=== PATIENT | male | born 1980 | race Two or more races ===

== ENCOUNTER 2024-10-30 13:19 | Emergency (ER) | payer SELFPAY ==
[~2024-10-30] VITALS: Ht 182.9 cm; Wt 104.6 kg
[2024-10-30 14:06] LABS: BASOPHILS # (AUTO) 0.1 X10'3 (0-0.2); BASOPHILS % (AUTO) 0.7 % (0-1); EOSINOPHILS # (AUTO) 0.3 X10'3 (0-0.9); EOSINOPHILS % (AUTO) 2.7 % (0-6); HEMATOCRIT 50.4 % (42.0-52.0); HEMOGLOBIN 16.8 g/dl (14.0-17.9); LYMPHOCYTES # (AUTO) 2.9 X10'3 (1.1-4.8); LYMPHOCYTES % (AUTO) 31.5 % (21-51); MEAN CORPUSCULAR HEMOGLOBIN 29.6 PG (27.0-31.0); MEAN CORPUSCULAR HGB CONC 33.5 g/dL (33.0-36.5); MEAN CORPUSCULAR VOLUME 88.4 FL (78-98); MEAN PLATELET VOLUME 8.8 FL (7.4-10.4); MONOCYTES # (AUTO) 0.4 X10'3 (0-0.9); MONOCYTES % (AUTO) 4.7 % (2-12); NEUTROPHILS # (AUTO) 5.5 X10'3 (1.8-7.7); NEUTROPHILS % (AUTO) 60.4 % (42-75); PLATELET COUNT 231 X10'3 (140-440); RED CELL DISTRIBUTION WIDTH 13.9 % (11.5-14.5); WHITE BLOOD COUNT 9.2 X10'3 (4.5-11.0)
[2024-10-30 14:24] LABS: ALANINE AMINOTRANSFERASE 48 U/L (12-78); ALBUMIN 3.9 G/DL (3.4-5.0); ALBUMIN/GLOBULIN RATIO 0.9 (1.1-1.5); ALKALINE PHOSPHATASE 140 IU/L (46-116); ANION GAP 10 (8-16); ASPARTATE AMINO TRANSFERASE 29 U/L (10-37); BILIRUBIN,TOTAL 0.6 MG/DL (0.1-1.0); BLOOD UREA NITROGEN 9 MG/DL (7-18); BUN/CREATININE RATIO 8.7 (10.0-20.0); CALCIUM 8.5 MG/DL (8.5-10.1); CHLORIDE 105 MMOL/L (99-107); CREATININE 1.04 MG/DL (0.60-1.10); GLUCOSE 134 MG/DL (70-104); POTASSIUM 3.4 MMOL/L (3.5-5.1); SODIUM 143 MMOL/L (135-145); TOTAL CARBON DIOXIDE 28.5 MMOL/L (24-32); TOTAL PROTEIN 8.4 G/DL (6.4-8.2); eCRCL 99 ML/MIN; eGFR 78 ML/MIN
[2024-10-30 14:28] LABS: LIPASE 33 U/L (16-77)
[2024-10-30] MEDS: LIDOcaine 2% Viscous 15ml cup MM PRN (14:46)
[2024-10-30] MEDS: famotidine 20mg tablet PO ONE (14:46)
[2024-10-30] MEDS: mag hydrox/Alum hydrox/simeth 30ml oral suspension PO ONE (14:46)
[2024-10-30] MEDS: proCHLORperazine 10 MG/2 ml inj IV ONE (15:02)
[2024-10-30] MEDS: normal saline 1000ml 1,000 ML IV ONE (15:06)
[2024-10-30] MEDS: diphenhydrAMINE 50 mg/ml inj IV ONE (15:22)
[2024-10-30] MEDS ORDERED: ONDA-245 PO (15:30)
[2024-10-30] MEDS ORDERED: RIME75TA PO (15:30)
[2024-10-30 15:55] VITALS: BP 118/82; PULSE 79; RESP 16; TEMP 98.5; O2SAT 98
== END 2024-10-30 16:05 | disposition home or self-care (01) ==
LOC: ER 13:21
DX: G43.909 Migraine, unspecified, not intractable, without status migrainosus (principal); R11.2 Nausea with vomiting, unspecified; R10.13 Epigastric pain
CPT/HCPCS: 36415; 71045; 80053; 83690; 84484; 85025; 93005; 96361; 96374; 96375; 99285; J0780; J1200; J7030

== ENCOUNTER 2025-04-05 21:56 | Emergency (ER) | payer MEDICAID ==
[~2025-04-05] VITALS: Ht 185.4 cm; Wt 92.1 kg
[~2025-04-05 21:56] MED LIST: ONDA-245 PO; RIME75TA PO
[2025-04-05 22:02] VITALS: TEMP 98.6
[2025-04-05 22:21] LABS: CLARITY,URINE CLEAR (Clear); COLOR,URINE ORANGE (Yellow); UA COLLECTION TYPE CLN CATCH MIDSTREAM
[2025-04-05 22:26] LABS: BASOPHILS # (AUTO) 0.1 X10'3 (0-0.2); BASOPHILS % (AUTO) 0.8 % (0-1); EOSINOPHILS # (AUTO) 0.4 X10'3 (0-0.9); EOSINOPHILS % (AUTO) 3.1 % (0-6); HEMATOCRIT 48.1 % (42.0-52.0); HEMOGLOBIN 16.3 g/dl (14.0-17.9); MEAN CORPUSCULAR HEMOGLOBIN 29.2 PG (27.0-31.0); MEAN CORPUSCULAR HGB CONC 33.8 g/dL (33.0-36.5); MEAN CORPUSCULAR VOLUME 86.4 FL (78-98); MEAN PLATELET VOLUME 8.9 FL (7.4-10.4); MONOCYTES # (AUTO) 0.8 X10'3 (0-0.9); MONOCYTES % (AUTO) 7.2 % (2-12); NEUTROPHILS # (AUTO) 6.1 X10'3 (1.8-7.7); NEUTROPHILS % (AUTO) 53.9 % (42-75); PLATELET COUNT 195 X10'3 (140-440); RED BLOOD COUNT 5.57 X10'6 (4.70-6.10); RED CELL DISTRIBUTION WIDTH 13.9 % (11.5-14.5); WHITE BLOOD COUNT 11.4 X10'3 (4.5-11.0)
[2025-04-05 22:31] LABS: WBC,URINE 30-50 /HPF (0-4)
[2025-04-05 22:32] LABS: BACTERIA,URINE FEW /HPF (Neg); SQUAMOUS EPITHELIAL CELL,UR FEW /LPF (FEW)
[2025-04-05 22:37] LABS: ALANINE AMINOTRANSFERASE 53 U/L (12-78); ALBUMIN 3.7 G/DL (3.4-5.0); ALBUMIN/GLOBULIN RATIO 0.9 (1.1-1.5); ALKALINE PHOSPHATASE 139 IU/L (46-116); ANION GAP 8 (8-16); ASPARTATE AMINO TRANSFERASE 35 U/L (10-37); BILIRUBIN,TOTAL 0.6 MG/DL (0.1-1.0); BLOOD UREA NITROGEN 14 MG/DL (7-18); BUN/CREATININE RATIO 15.2 (10.0-20.0); CALCIUM 8.8 MG/DL (8.5-10.1); CHLORIDE 107 MMOL/L (99-107); CREATININE 0.92 MG/DL (0.60-1.10); GLUCOSE 113 MG/DL (70-104); LIPASE 35 U/L (16-77); SODIUM 142 MMOL/L (135-145); TOTAL CARBON DIOXIDE 27.2 MMOL/L (24-32); TOTAL PROTEIN 7.6 G/DL (6.4-8.2); eCRCL 115 ML/MIN; eGFR 89 ML/MIN
--- NOTE | 2025-04-06 01:52 | Physician Documentation ---
History of Present Illness ~ Chief Complaint: Blood in Urine Stated Complaint: INFECTION Time Seen by MD: 01:51 Mode of Arrival: Ambulatory HPI Patient presents to the emergency room with dysuria. Taking azo for symptoms. Feeling feverish. Mild reported abdominal pain along with some nausea as well. Medication Reconciliation Allergies: Coded Allergies: No Known Allergies (Unverified , 04/05/25) Scheduled PRN Ondansetron 8mg ODT (Ondansetron Odt), 1 TAB PO TID PRN for nausea/vomiting Rimegepant Sulfate (Nurtec Odt), 1 TAB PO QDAY PRN PRN for migraine Review of Systems ROS All review of systems negative except as per HPI Physical Exam Vital Signs: Temperature: 98.6, Source: Temporal, Heart Rate: 57, Respiratory Rate: 16, BP: 124/87, Pulse Oximetry: 97, Weight: 92.100 Physical Exam General: Patient is awake, alert, oriented x4 in no acute distress Head: Normocephalic and atraumatic. Eyes: Conjunctival normal. EOMI. PERRL. ENT: Mucous membranes moist. Neck: Supple, trachea is midline. Chest: Clear to auscultation bilaterally without rales, rhonchi, or wheezes. There is no accessory muscle use or retractions. Cardiac: RRR without murmurs, gallops, or rubs. Abd: Soft, nondistended, nontender, with normoactive bowel sounds. No guarding, rebound, or rigidity. Progress Results/Orders Results/Orders Orders - CIRILO WADE MD Cult Urine + [place] [address] (04/05/25 22:32) Completed Orders - CIRILO WADE MD Cbc/Diff (04/05/25 22:05) BMP (04/05/25 22:05) Lipase (04/05/25 22:05) CMP (04/05/25 22:05) Procalcitonin (04/05/25 22:05) Ua W/Microscopic, Cult If Ind (04/05/25 22:07) Ondansetron Disint. Tablet (Zofran Odt T (04/06/25 01:55) Ciprofloxacin Tablet (Cipro Tablet) (04/06/25 01:55) Vital Signs 04/05/25 04/06/25 04/06/25 22:02 00:45 01:16 Temp 98.6 Pulse 65 57 Resp 15 16 16 B/P (MAP) 146/65 124/87 (99) Pulse Ox 96 97 Laboratory Tests Test 04/05/25 22:07 04/05/25 22:15 Urine Specimen Description Cln catch midstream Urine Color [place] Urine Clarity Clear Urine pH Urine Specific [place] Urine Protein Urine Glucose (UA) Urine Ketones Urine Occult Blood Urine Nitrite Urine Bilirubin Urine Urobilinogen Urine Leukocyte Esterase Urine RBC 3-10 Urine WBC 30-50 H Urine Squamous Epithelial Cells Few Urine Bacteria Few Urine Culture Indicated Indicated Volume Urine Centrifuged 10 ml Urine Comment See note White Blood Count 11.4 H Red Blood Count 5.57 Hemoglobin 16.3 Hematocrit 48.1 Mean Corpuscular Volume 86.4 Mean Corpuscular Hemoglobin 29.2 Mean Corpuscular Hemoglobin Concent 33.8 Red Cell Distribution Width 13.9 Platelet Count 195 Mean Platelet Volume 8.9 Neutrophils (%) (Auto) 53.9 Lymphocytes (%) (Auto) 35.0 Monocytes (%) (Auto) 7.2 Eosinophils (%) (Auto) 3.1 Basophils (%) (Auto) 0.8 Neutrophils # (Auto) 6.1 Lymphocytes # (Auto) 4.0 Monocytes # (Auto) 0.8 Eosinophils # (Auto) 0.4 Basophils # (Auto) 0.1 CBC Comment Sodium Level 142 Potassium Level 4.0 Chloride Level 107 Carbon Dioxide Level 27.2 Anion Gap 8 Blood Urea Nitrogen 14 Creatinine 0.92 Estimated GFR/1.73 m2 89 BUN/Creatinine Ratio 15.2 Glucose Level 113 H Calcium Level 8.8 Total Bilirubin 0.6 Aspartate Amino Transf (AST/SGOT) 35 Alanine Aminotransferase (ALT/SGPT) 53 Alkaline Phosphatase 139 H Total Protein 7.6 Albumin 3.7 Globulin 3.9 Albumin/Globulin Ratio 0.9 L Lipase 35 Procalcitonin < 0.05 Chemistry Comments Microbiology Date/Time Source Procedure Growth Status 04/05/25 22:32 Urine Clean Catch Midstream Urine Culture - Preliminary Culture received. Resulted Medical Decision Making Findings Patient presents to the emergency room for evaluation of dysuria and abdominal pain as per HPI. Differentials include but are not limited to urinary tract infection sepsis intra-abdominal infection on pyelonephritis therefore emergent labs ordered. Mild elevation of white blood cell count however vital signs are stable and I believe he will do well on outpatient basis for treatment of urinary tract infection which was sewn on UA. Departure Disposition: HOME / SELF CARE / HOMELESS Impression: Primary Impression: Urinary tract infection Condition: Stable Discharge Instructions: Urinary Tract Infection, Adult Additional Instructions: Finish all antibiotics Referrals: NO PRIMARY CARE PROVIDER (PCP) Prescriptions Ondansetron 8mg ODT (Ondansetron Odt) 8 Mg Tab.rapdis 1 TAB PO Q6H for nausea/vomiting for 3 Days, #12 TAB 0 Refills Prov: CIRILO WADE MD 04/06/25 Ciprofloxacin HCl (Ciprofloxacin HCl) 500 Mg Tab 1 TAB PO Q12H for 7 Days, #14 TAB Prov: CIRILO WADE MD 04/06/25 Education Educated: Patient Educated regarding: diagnosis, treatment, need for follow up Signature Scribe Signature: No scribe Attestation: The note accurately reflects work and decisions made by me.Cirilo Wade MD 04/06/25 02:00 CIRILO WADE MD April 06, 2025 01:52
[2025-04-06] MEDS ORDERED: ONDA-245 PO (02:00)
[2025-04-06] MEDS ORDERED: CIPR-202 PO (02:00)
[2025-04-06] MEDS: ciprofloxacin 250mg tablet PO ONE (02:14)
[2025-04-06] MEDS: ondansetron 4mg rapidly disintigrating tab PO ONE (02:14)
[2025-04-06 02:16] VITALS: BP 129/88; PULSE 80; RESP 14; O2SAT 97
== END 2025-04-06 02:20 | disposition home or self-care (01) ==
LOC: ER 21:56
DX: N39.0 Urinary tract infection, site not specified (principal)
CPT/HCPCS: 36415; 80053; 81001; 83690; 84145; 85025; 87088; 99283

== ENCOUNTER 2025-05-20 16:12 | Emergency (ER) | payer MEDICAID ==
[~2025-05-20] VITALS: Ht 185.4 cm; Wt 100.0 kg
[2025-05-20 16:15] VITALS: TEMP 97.7
--- NOTE | 2025-05-20 16:23 | ELECTROCARDIOGRAPH REPORT ---
[facility] Test Date: 2025-05-20 Test Time: 16:21:40 Pat Name: FREYA WILDER Department: [facility]- Patient ID: [facility]-[id number] Room: Gender: M Author: : 1980 Requested By: DAMON LAURA Order Number: [id number] Reading MD: Dr. Antoine Luke Measurements Intervals [place] Rate: 61 P: 31 OK: 149 QRS: -12 QRSD: 101 T: -36 QT: 397 QTc: 400 Interpretive Statements Sinus rhythm Posterior infarct, old Nonspecific T abnormalities, inferior leads Electronically Signed On 05-20-2025 18:46:[address] Antoine Luke Please click the below link to view image of tracing.
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
[2025-05-20 16:53] LABS: BASOPHILS # (AUTO) 0.1 X10'3 (0-0.2); BASOPHILS % (AUTO) 0.7 % (0-1); EOSINOPHILS # (AUTO) 0.3 X10'3 (0-0.9); EOSINOPHILS % (AUTO) 2.5 % (0-6); HEMATOCRIT 46.7 % (42.0-52.0); HEMOGLOBIN 15.8 g/dl (14.0-17.9); LYMPHOCYTES # (AUTO) 3.3 X10'3 (1.1-4.8); LYMPHOCYTES % (AUTO) 32.9 % (21-51); MEAN CORPUSCULAR HEMOGLOBIN 29.2 PG (27.0-31.0); MEAN CORPUSCULAR HGB CONC 33.8 g/dL (33.0-36.5); MEAN CORPUSCULAR VOLUME 86.3 FL (78-98); MONOCYTES # (AUTO) 0.7 X10'3 (0-0.9); MONOCYTES % (AUTO) 6.7 % (2-12); NEUTROPHILS # (AUTO) 5.8 X10'3 (1.8-7.7); NEUTROPHILS % (AUTO) 57.2 % (42-75); PLATELET COUNT 182 X10'3 (140-440); RED BLOOD COUNT 5.41 X10'6 (4.70-6.10); WHITE BLOOD COUNT 10.1 X10'3 (4.5-11.0)
[2025-05-20 17:05] LABS: ALBUMIN 3.7 G/DL (3.4-5.0); ANION GAP 9 (8-16); BLOOD UREA NITROGEN 11 MG/DL (7-18); BUN/CREATININE RATIO 11.3 (10.0-20.0); CALCIUM 8.6 MG/DL (8.5-10.1); CHLORIDE 104 MMOL/L (99-107); CREATININE 0.97 MG/DL (0.60-1.10); GLUCOSE 124 MG/DL (70-104); POTASSIUM 3.2 MMOL/L (3.5-5.1); PRO BRAIN NATRIURETIC PEPTIDE 71 PG/ML (0-125); SODIUM 140 MMOL/L (135-145); TOTAL CARBON DIOXIDE 26.8 MMOL/L (24-32); eCRCL 109 ML/MIN; eGFR 84 ML/MIN
--- NOTE | 2025-05-20 17:10 | RADIOLOGY REPORT ---
DI CHEST,SINGLE VIEW, HISTORY: CP COMPARISON: DI CHEST,SINGLE VIEW on DOS: 10/30/24 DI CHEST,SINGLE VIEW on DOS: 10/30/24 TECHNICAL DATA: 1 view of the chest was obtained. FINDINGS: Lines and tubes: None Cardiomediastinal silhouette: normal Pulmonary vasculature: normal Lung expansion: normal Lung airspace: normal Lung interstitium: normal Pleura: normal Pneumothorax: no Bones: Unremarkable Other: no IMPRESSION: No acute intrathoracic abnormality.
[2025-05-20] MEDS: acetaminophen 325mg tablet PO ONE (17:15)
[2025-05-20] MEDS: aspirin 81mg tab.chew PO ONE (17:17)
[2025-05-20] MEDS ORDERED: potassium Cl 20 mEq SR tablet PO STA (17:31)
[2025-05-20 18:00] LABS: MAGNESIUM 2.1 MG/DL (1.5-2.4)
[2025-05-20] MEDS: dexamethasone sod phosphate 10mg/ml inj PO STA (18:18)
[2025-05-20] MEDS: POTASSIUM CHLORIDE 20 MEQ/15 ML oral solution PO ONE (18:18)
[2025-05-20] MEDS: normal saline 1000ML IV soln IVB ONE (18:18)
[2025-05-20] MEDS: proCHLORperazine 10 MG/2 ml inj IM ONE (18:19)
[2025-05-20] MEDS: diphenhydrAMINE 50 mg/ml inj IV ONE (18:20)
[2025-05-20] MEDS ORDERED: RIME75TA PO (19:39)
[2025-05-20 20:02] VITALS: BP 99/67; PULSE 71; RESP 16; O2SAT 95
== END 2025-05-20 20:04 | disposition home or self-care (01) ==
LOC: ER 16:13
DX: R51.9 Headache, unspecified (principal); R11.0 Nausea; M25.512 Pain in left shoulder; E87.6 Hypokalemia
CPT/HCPCS: 36415; 71045; 80048; 83735; 83880; 84484; 85025; 93005; 96361; 96372; 96374; 99285; J0780; J1100; J1200; J7030